=== PATIENT | male | born 1990 | race Caucasian/White ===

== ENCOUNTER → 2021-06-20 | Outpatient (CLI) | payer BC ==
--- NOTE | 2021-06-20 14:33 | Diagnostic Imaging Report ---
INDICATION: Left thumb injury. FINDINGS: Three views of the left hand with attention to the thumb show no fracture, dislocation, or other acute abnormalities. IMPRESSION: Negative left hand and thumb. Dictated by: Dictated on workstation # [id number]
== END ==
LOC: RAD 13:55
PROVIDERS: ATTEND Registered Nurse
DX: S63.642A Sprain of metacarpophalangeal joint of left thumb, initial encounter (principal); X58.XXXA Exposure to other specified factors, initial encounter
CPT/HCPCS: 73130